=== PATIENT | female | born 1965 | race Two or more races ===

== ENCOUNTER 2017-11-16 10:33 | Outpatient (CLI) | payer OTHER ==
[~2017-11-16 10:33] MED LIST: ACIDOPHILUS1 EAC3 PO; ANTIVERT25 M1 PO; FLONASE16 G1 NS; HYDROCHLOROTHIA25 MG; LIPO-FLAVONOID1 EACH PO; PROTONIX20 MG PO; TOPROL XL25 MG
== END 2017-11-16 10:36 | disposition home or self-care (01) ==
LOC: SONOGRAMA 10:33
DX: R10.13 Epigastric pain (principal)

== ENCOUNTER 2018-04-08 08:52 | Emergency (ER) | payer OTHER ==
[~2018-04-08] VITALS: Ht 157.5 cm; Wt 90.7 kg
[2018-04-08] MEDS ORDERED: SYNTHROID50 MCG PO (09:14)
[2018-04-08] MEDS ORDERED: CALTRATE 600 +1 EACH PO (09:15)
== END 2018-04-08 19:29 | disposition home or self-care (01) ==
LOC: ER 08:52
DX: K58.8 Other irritable bowel syndrome (principal)

== ENCOUNTER 2018-10-30 08:59 | Outpatient (CLI) | payer OTHER ==
[~2018-10-30 08:59] MED LIST changes: +CALTRATE 600 +1 EACH PO; +SYNTHROID50 MCG PO
== END 2018-10-30 09:26 | disposition home or self-care (01) ==
LOC: MAMO-SONO 08:59
DX: R92.8 Other abnormal and inconclusive findings on diagnostic imaging of breast (principal); N64.59 Other signs and symptoms in breast; E04.1 Nontoxic single thyroid nodule

== ENCOUNTER → 2020-09-16 | Day surgery (SDC) | payer OTHER ==
[~2020-09-16] MED LIST changes: +CALTRATE PO; +CENTRUM ADULTS1 EACH PO; +COZAAR50 MG PO; +ELAVIL PO; +LEVOTHYROXINE25 MCG PO; +PROTON PO; +TOPROL XL50 M1 PO
== END | disposition home or self-care (01) ==
LOC: ADM 09-14 10:15 → CIR.AMB 07:00
PROVIDERS: ATTEND Surgery
DX: L72.11 Pilar cyst (principal); L72.0 Epidermal cyst; Z20.822 Contact with and (suspected) exposure to COVID-19

== ENCOUNTER 2023-02-08 08:01 | Outpatient (CLI) | payer OTHER | END 2023-02-08 08:05 | disposition home or self-care (01) | LOC: SONOGRAMA 08:01 | PROVIDERS: ATTEND Pathology Anatomic Pathology & Clinical Pathology | DX: D34 Benign neoplasm of thyroid gland (principal) ==

== ENCOUNTER 2023-07-05 08:29 | Outpatient (CLI) | payer OTHER | END 2023-07-05 08:32 | disposition home or self-care (01) | LOC: SONOGRAMA 08:29 | PROVIDERS: ATTEND Pathology Anatomic Pathology & Clinical Pathology | DX: D34 Benign neoplasm of thyroid gland (principal); E07.89 Other specified disorders of thyroid; E04.2 Nontoxic multinodular goiter ==